=== PATIENT | female | born 1990 | race Caucasian/White ===

== ENCOUNTER 2016-06-12 13:25 | Observation (INO) | payer MEDICAID ==
[~2016-06-12] VITALS: Ht 154.9 cm; Wt 78.9 kg
[~2016-06-12 13:25] MED LIST: MOTRIN800 MG PO; PRENATAL VITAMI1 T10 PO
[2016-06-12 15:19] VITALS: BP 121/68
[2016-06-12] MEDS ORDERED: NATURAL IRON65 MG PO (15:23)
[2016-06-12 17:21] VITALS: BP 110/60
== END 2016-06-12 17:30 | disposition home or self-care (01) ==
LOC: MLD 13:25
PROVIDERS: ADMIT Obstetrics & Gynecology; ATTEND Obstetrics & Gynecology
DX: O26.893 Other specified pregnancy related conditions, third trimester (principal); R10.2 Pelvic and perineal pain; Z3A.37 37 weeks gestation of pregnancy
CPT/HCPCS: 76805; G0378; Q0092

== ENCOUNTER 2016-06-17 22:53 | Inpatient (IN) | payer MEDICAID ==
[~2016-06-17] VITALS: Ht 154.9 cm; Wt 78.9 kg
[~2016-06-17 22:53] MED LIST changes: +NATURAL IRON65 MG PO
[2016-06-17] MEDS ORDERED: PROMETHAZINE 25 MG/ML VIAL IVP PRN (23:20)
[2016-06-17] MEDS ORDERED: CARBOPROST 250 MCG/ML AMP IM PRN (23:20)
[2016-06-17] MEDS ORDERED: OXYTOCIN 10 UNITS/ML VIAL IM SCH (23:20)
[2016-06-17] MEDS ORDERED: NALBUPHINE HYDROCHLORIDE 10 MG/ML VIAL IVP PRN (23:20)
[2016-06-17] MEDS ORDERED: METHYLERGONOVINE 0.2 MG/ML AMP IM PRN (23:20)
[2016-06-17] MEDS ORDERED: MISOPROSTOL 25 MCG TAB VG PRN (23:25)
[2016-06-17 23:32] VITALS: BP 109/66
[2016-06-17] MEDS: LACTATED RINGERS 1,000 ML IV SCH (23:50)
[2016-06-18] MEDS ORDERED: ROPIVACAINE 0.2%/NS PREMIX 250 ML EPI ONE (01:06)
[2016-06-18] MEDS ORDERED: ROPIVACAINE 0.2%/NS PREMIX 250 ML EPI SCH (01:25)
[2016-06-18] MEDS ORDERED: OXYTOCIN 20 UNITS/LR PREMIX 1,000 ML IV ONE (02:57)
[2016-06-18] MEDS ORDERED: OXYTOCIN 20 UNITS/LR PREMIX 1,000 ML IV SCH (06:00)
[2016-06-18] MEDS ORDERED: ACETAMINOPHEN 325 MG TAB PO PRN (08:00)
[2016-06-18] MEDS ORDERED: ACETAMINOPHEN 325 MG TAB ONE (08:10)
--- NOTE | 2016-06-18 09:16 | NUR ---
PATIENT HAS BEEN SCREENED AND CATEGORIZED LOW NUTRITION RISK. PATIENT WILL BE SEEN WITHIN 7 DAYS OF ADMISSION. 06/24/[address]
[2016-06-18] MEDS ORDERED: OXYTOCIN 10 UNITS/ML VIAL ONE (10:35)
[2016-06-18] MEDS: LACTATED RINGERS 1,000 ML IV SCH (10:48)
[2016-06-18] MEDS ORDERED: TEMAZEPAM 15 MG CAP PO PRN (12:45)
[2016-06-18] MEDS ORDERED: MEASLES, MUMPS, AND RUBELLA 1 VIAL SQVAC PRN (12:45)
[2016-06-18] MEDS ORDERED: BENZOCAINE/MENTHOL 20%-0.5% 60 GM CAN TP PRN (12:45)
[2016-06-18] MEDS ORDERED: oxyCODONE/APAP 5/325 MG 1 TAB TAB PO PRN (12:45)
[2016-06-18] MEDS ORDERED: METHYLERGONOVINE 0.2 MG/ML AMP IM PRN (12:45)
[2016-06-18] MEDS ORDERED: WITCH HAZEL 40 PAD PACKAGE TP PRN (12:45)
[2016-06-18] MEDS ORDERED: OXYTOCIN 10 UNITS/ML VIAL IM PRN (12:45)
[2016-06-18] MEDS ORDERED: HYDROcodone/APAP 5/325 MG 1 TAB TAB PO PRN (12:45)
[2016-06-18] MEDS ORDERED: oxyCODONE/APAP 5/325 MG 1 TAB TAB ONE (12:52)
[2016-06-18] MEDS: IBUPROFEN 800 MG TAB PO PRN (19:25)
[2016-06-18] MEDS ORDERED: DOCUSATE SOD/SENNA 50/8.6 MG 1 TAB PO SCH (21:00)
[2016-06-19] MEDS: IBUPROFEN 800 MG TAB PO PRN ×2 (02:25→08:39)
[2016-06-19] MEDS ORDERED: MOTRIN400 M1 PO (14:53)
== END 2016-06-19 15:45 | disposition home or self-care (01) | DRG 560 ==
LOC: MLD 22:53 → MFCC 06-18 14:14
PROVIDERS: ADMIT Obstetrics & Gynecology; ATTEND Obstetrics & Gynecology
PROC: 10E0XZZ Delivery of Products of Conception, External Approach (ICD-10-PCS; principal; 2016-06-17)
PROC: 10907ZC Drainage of Amniotic Fluid, Therapeutic from Products of Conception, Via Natural or Artificial Opening (ICD-10-PCS; 2016-06-17)
PROC: 00HU33Z Insertion of Infusion Device into Spinal Canal, Percutaneous Approach (ICD-10-PCS; 2016-06-17)
PROC: 3E0R3CZ (ICD-10-PCS; 2016-06-17)
DX: O80 Encounter for full-term uncomplicated delivery (principal); S61.511A Laceration without foreign body of right wrist, initial encounter; Z37.0 Single live birth; Z3A.39 39 weeks gestation of pregnancy; Z28.21 Immunization not carried out because of patient refusal

== ENCOUNTER 2018-03-03 17:55 | Emergency (ER) | payer SELFPAY ==
[~2018-03-03] VITALS: Ht 154.9 cm; Wt 72.6 kg
[~2018-03-03 17:55] MED LIST changes: +FERR-252 PO; +IBUP-1842 PO; -MOTRIN800 MG PO; -NATURAL IRON65 MG PO; +PREN-385 PO; -PRENATAL VITAMI1 T10 PO
--- NOTE | 2018-03-03 18:02 | NUR ---
PT AMBULATED TO ER BED 10
[2018-03-03 18:10] VITALS: BP 127/75
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
[2018-03-03 18:57] VITALS: BP 127/75
== END 2018-03-03 18:58 | disposition home or self-care (01) ==
LOC: MED 17:55
DX: S23.3XXA Sprain of ligaments of thoracic spine, initial encounter (principal); Z79.1 Long term (current) use of non-steroidal anti-inflammatories (NSAID); Z79.899 Other long term (current) drug therapy; V49.49XA Driver injured in collision with other motor vehicles in traffic accident, initial encounter; Y93.89 Activity, other specified; Y92.410 Unspecified street and highway as the place of occurrence of the external cause; Y99.8 Other external cause status
CPT/HCPCS: 99282

== ENCOUNTER 2018-08-02 03:20 | Emergency (ER) | payer SELFPAY ==
[~2018-08-02] VITALS: Ht 154.9 cm; Wt 72.6 kg
[2018-08-02 03:30] VITALS: BP 126/75
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
[2018-08-02] MEDS ORDERED: KETOROLAC 60 MG/2 ML VIAL IM ONE (04:00)
--- NOTE | 2018-08-02 04:08 | NUR ---
[facility] called. Spoke with Francisco, said he would have a spout worker follow-up. Will call back
--- NOTE | 2018-08-02 04:40 | NUR ---
Spoke with Memo, dispatch at [facility]. Unable to provide case number or ETA of because a deputy has not yet jade assigned. Awaiting call back.
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
--- NOTE | 2018-08-02 05:30 | NUR ---
[facility] called. Spoke with Deputy Jolly, said he would follow up with the patient.
== END 2018-08-02 05:02 | disposition home or self-care (01) ==
LOC: MED 03:20
DX: S09.90XA Unspecified injury of head, initial encounter (principal); Z79.899 Other long term (current) drug therapy; Y04.2XXA Assault by strike against or bumped into by another person, initial encounter; Y93.89 Activity, other specified; Y92.89 Other specified places as the place of occurrence of the external cause; Y99.8 Other external cause status
CPT/HCPCS: 96372; 99283; J1885

== ENCOUNTER 2019-01-13 01:14 | Emergency (ER) | payer SELFPAY ==
[~2019-01-13] VITALS: Ht 154.9 cm; Wt 72.6 kg
[2019-01-13 01:19] VITALS: BP 134/106
--- NOTE | 2019-01-13 01:23 | NUR ---
PT AMBULATED TO BED 5.
--- NOTE | 2019-01-13 01:23 | NUR ---
CHANGE TO BED 4. PROVIDING URINE.
--- NOTE | 2019-01-13 01:30 | NUR ---
28 Y/O F PRESENTS TO ER C/O HEADACHE SINCE SATURDAY. PT DENIES PAIN, PAIN LEVEL 0/10. PT FEELS PRESSURE IN HEAD THAT COMES AND GOES. PT DENIES VISION CHANGES. CURRENT BP 147/90. PT STATES HTN RUNS IN HER FAMILY, BUT HAS NEVER BEEN TREATED FOR HTN. NKA. NO MED HX. SAFETY MEASURES IN PLACE. ERMD AT BEDSIDE.
[2019-01-13 01:42] VITALS: BP 147/90
--- NOTE | 2019-01-13 01:43 | NUR ---
Patient discharged by Dr. Samayoa with v/s stable. Written and verbal after care instructions given and explained. Patient verbalized understanding. Ambulatory with steady gait. All questions addressed prior to discharge. Advised to follow up with PMD.
== END 2019-01-13 01:42 | disposition home or self-care (01) ==
LOC: MED 01:14
DX: I10 Essential (primary) hypertension (principal); Z79.899 Other long term (current) drug therapy
CPT/HCPCS: 99281

== ENCOUNTER 2019-02-15 17:34 | Emergency (ER) | payer SELFPAY ==
[~2019-02-15] VITALS: Ht 154.9 cm; Wt 76.2 kg
[2019-02-15 17:42] VITALS: BP 127/78
--- NOTE | 2019-02-15 17:48 | NUR ---
PT AMBULATED TO ER BED 04
--- NOTE | 2019-02-15 17:50 | NUR ---
PT ARRIVED TO ED C/O RLQ PAIN X SATURDAY. RATES PAIN8/10 AND DESCRIBES IT SHARP. DENIES ANY DYSURIA,BLOOD IN URINE. ABD IS FLAT AND SOFT. ACTIVE BS IN ALL QUADS. TENDERNESS ON RLQ. PT ALSO STATES THE PAIN RADIATES TO THE RIGHT SIDE OF THE BACK. VSS. NO N,V,D, OR FEVER. NO CHANGES IN APPETITE. NKA. MO PMH.
--- NOTE | 2019-02-15 18:32 | NUR ---
US AT BEDSIDE.
--- NOTE | 2019-02-15 19:04 | NUR ---
Pt report given to LOUIS CROOKS. Transfer of care at this time.
--- NOTE | 2019-02-15 19:11 | NUR ---
PATIENT QUIETLY SITTING IN BED. WILL CONTINUE TO MONITOR.
[2019-02-15 19:27] VITALS: BP 119/77
--- NOTE | 2019-02-15 19:27 | NUR ---
Patient discharged with v/s stable. Written and verbal after care instructions given and explained. Patient alert, oriented and verbalized understanding of instructions. with steady gait. All questions addressed prior to discharge. ID band removed. Patient advised to follow up with PMD. Rx of given. Opportunity to ask questions provided and answered.
== END 2019-02-15 19:27 | disposition home or self-care (01) ==
LOC: MED 17:34
DX: N83.209 Unspecified ovarian cyst, unspecified side (principal); Z79.899 Other long term (current) drug therapy
CPT/HCPCS: 76856; 81002; 81025; 99284; Q0092

== ENCOUNTER 2019-04-07 13:06 | Emergency (ER) | payer SELFPAY ==
[~2019-04-07] VITALS: Ht 154.9 cm; Wt 72.6 kg
[2019-04-07 13:13] VITALS: BP 117/73
--- NOTE | 2019-04-07 13:40 | NUR ---
Patient ambulated to bed 12 with family. RN evaluating patient at bedside.
--- NOTE | 2019-04-07 13:52 | NUR ---
BIB SELF PT C/O DRY COUGH, CONGESTION, STUFFY NOSE X3 DAYS. DENIES N/V/D. REPORTS SORE THROAT PAIN, 01/15. PERIODS OF DIFFICULT BREATHING X3 DAYS, OCCURS MOSTLY AT NIGHT TIME. NO PMH, NKA Addendum: 04/07/19 at 1357 by [email or web address] BIB SELF PT C/O DRY COUGH, CONGESTION, STUFFY NOSE X3 DAYS. DENIES N/V/D. REPORTS SORE THROAT PAIN, 01/15. PERIODS OF DIFFICULT BREATHING X3 DAYS, OCCURS MOSTLY AT NIGHT TIME. BILATERAL LUNG SOUNDS CLEAR THROUGHOUT ALL LOBES. NO PMH, NKA
--- NOTE | 2019-04-07 14:15 | NUR ---
CECILIO YU AT BEDSIDE
[2019-04-07 14:44] VITALS: BP 121/75
--- NOTE | 2019-04-07 14:44 | NUR ---
Patient discharged with v/s stable. Written and verbal after care instructions given and explained. Patient alert, oriented and verbalized understanding of instructions. Ambulatory with steady gait. All questions addressed prior to discharge. ID band removed. Patient advised to follow up with PMD. Rx of TAMIFLU, PROMETHAZINE, IBUPROFEN given. Patient educated on indication of medication including possible reaction and side effects. Opportunity to ask questions provided and answered.
== END 2019-04-07 14:44 | disposition home or self-care (01) ==
LOC: MED 13:06
DX: R09.89 Other specified symptoms and signs involving the circulatory and respiratory systems (principal); R05 Cough; R50.9 Fever, unspecified; Z79.899 Other long term (current) drug therapy
CPT/HCPCS: 99283

== ENCOUNTER 2019-10-06 11:37 | Emergency (ER) | payer OTHER ==
[~2019-10-06] VITALS: Ht 154.9 cm; Wt 79.4 kg
[2019-10-06 11:42] VITALS: BP 127/76
--- NOTE | 2019-10-06 11:51 | NUR ---
29 Y/O F C/C RLQ ABDOMINAL PAIN 4/10, STABBING SENSATION, NON RADIATING, NOTHING ALLEVIATES OR EXARCERBATES PAIN X 3 WEEKS. DENIES DYSURIA; REGULAR BM. NO NVD. PT NKA. NO HX. NO SX. NO RX. SIDE RAIL X1.
[2019-10-06 13:21] LABS: BASOPHILS # (AUTO) 0.1 K/uL (0.00-0.22); EOSINOPHILS # (AUTO) 0.1 K/uL (0-0.4); HEMOGLOBIN 12.2 g/dL (12.0-16.0); LYMPHOCYTES # (AUTO) 1.5 K/uL (2.5-16.5); LYMPHOCYTES % (AUTO) 20.2 % (20.5-51.1); MEAN CORPUSCULAR HEMOGLOBIN 26 pg (27-31); MEAN CORPUSCULAR HGB CONC 32 g/dL (33-37); MEAN CORPUSCULAR VOLUME 80.2 fL (80-94); MONOCYTES # (AUTO) 0.4 K/uL (0.8-1.0); MONOCYTES % (AUTO) 5.9 % (1.7-9.3); NEUTROPHILS # (AUTO) 5.3 K/uL (1.8-7.7); NEUTROPHILS % (AUTO) 71.9 % (42.2-75.2); PLATELET COUNT (AUTO) 263 K/uL (140-450); RED BLOOD CELL COUNT(AUTO) 4.74 MIL/uL (4.20-5.40); RED CELL DISTRIBUTION WIDTH 14.3 % (11.6-13.7); WHITE BLOOD COUNT (AUTO) 7.4 K/uL (4.8-10.8)
[2019-10-06 14:11] VITALS: BP 127/76
--- NOTE | 2019-10-06 14:11 | NUR ---
Patient discharged with v/s stable. Written and verbal after care instructions given and explained. Patient alert, oriented and verbalized understanding of instructions. Ambulatory with steady gait. All questions addressed prior to discharge. ID band removed. Patient advised to follow up with PMD. Rx of TYLENOL/ VITAMINS given. Patient educated on indication of medication including possible reaction and side effects. Opportunity to ask questions provided and answered. LABS AND ULTRASOUND REPORTS HANDED TO PT FOR F/U WITH ACCOUNT EXECUTIVE TRAINEE
== END 2019-10-06 14:11 | disposition home or self-care (01) ==
LOC: MED 11:37
DX: O20.0 Threatened abortion (principal); Z3A.01 Less than 8 weeks gestation of pregnancy; Z79.899 Other long term (current) drug therapy
CPT/HCPCS: 36415; 76817; 81002; 81025; 84702; 85025; 86900; 86901; 99284; Q0092

== ENCOUNTER 2019-10-23 18:03 | Emergency (ER) | payer OTHER ==
[~2019-10-23] VITALS: Ht 160 cm; Wt 81.2 kg
[2019-10-23 18:11] VITALS: BP 127/74
--- NOTE | 2019-10-23 18:15 | NUR ---
PT GIVEN URINE CUP AND AMBULATED TO BED 12
--- NOTE | 2019-10-23 18:27 | NUR ---
29 Y/O F C/C RLQ ABDONINAL PAIN RADIATING TO THE RUQ ABDOMINAL AREA, SHARP/DULL SENSATION, 5/10 PAIN, NOTHING ALLEVIATES/NOTHING EXARCERBATES X 3 WEEKS. PT FURTHER STATES SPOTTING ON AND OFF X 3 DAYS. CURRENTLY UNSURE OF CURRENT WEEKS. FIFTH . . NKA. NO HX. NO RX. NO SX. NO NVD. SIDE RAIL X1.
--- NOTE | 2019-10-23 18:30 | NUR ---
ULTRASOUND AT BEDSIDE
[2019-10-23 19:11] LABS: BASOPHILS % (AUTO) 0.4 % (0.0-2.0); EOSINOPHILS # (AUTO) 0.1 K/uL (0-0.4); EOSINOPHILS % (AUTO) 0.8 % (0.0-4.0); HEMATOCRIT 36.3 % (36-48); HEMOGLOBIN 11.6 g/dL (12.0-16.0); LYMPHOCYTES # (AUTO) 1.5 K/uL (2.5-16.5); LYMPHOCYTES % (AUTO) 17.3 % (20.5-51.1); MEAN CORPUSCULAR HEMOGLOBIN 26 pg (27-31); MEAN CORPUSCULAR HGB CONC 32 g/dL (33-37); MEAN CORPUSCULAR VOLUME 79.7 fL (80-94); MONOCYTES # (AUTO) 0.5 K/uL (0.8-1.0); NEUTROPHILS # (AUTO) 6.8 K/uL (1.8-7.7); NEUTROPHILS % (AUTO) 75.5 % (42.2-75.2); PLATELET COUNT (AUTO) 253 K/uL (140-450); RED BLOOD CELL COUNT(AUTO) 4.55 MIL/uL (4.20-5.40); WHITE BLOOD COUNT (AUTO) 8.9 K/uL (4.8-10.8)
--- NOTE | 2019-10-23 19:24 | NUR ---
REPORT GIVEN TO BATSHEVA MYERS FOR CONTINUITY OF CARE
--- NOTE | 2019-10-23 19:24 | NUR ---
RECEIVED REPORT FROM LOUIS RUTH. WILL CONT CARE AT THIS TIME.
[2019-10-23 19:33] LABS: APPEARANCE,URINE SL CLOUDY (CLEAR); BILIRUBIN,URINE NEGATIVE (NEGATIVE); BLOOD, URINE TRACE-I (NEGATIVE); COLOR,URINE YELLOW (YELLOW); LEUKOCYTE ESTERASE ,URINE 1+ (NEGATIVE); NITRITE, URINE NEGATIVE (NEGATIVE); UGLUCOSE NEGATIVE (NEGATIVE)
[2019-10-23 20:18] LABS: RBC,URINE 0-5 /HPF (0-5); WBC,URINE 0-5 /HPF (0-5)
[2019-10-23 21:01] VITALS: BP 111/73
== END 2019-10-23 21:01 | disposition home or self-care (01) ==
LOC: MED 18:03
DX: O43.891 Other placental disorders, first trimester (principal); O23.31 Infections of other parts of urinary tract in pregnancy, first trimester; Z3A.01 Less than 8 weeks gestation of pregnancy
CPT/HCPCS: 36415; 76817; 81001; 84702; 85025; 86900; 86901; 87086; 99284; Q0092

== ENCOUNTER 2020-12-24 04:00 | Emergency (ER) | payer OTHER ==
[~2020-12-24] VITALS: Ht 154.9 cm; Wt 81.6 kg
[2020-12-24 04:18] VITALS: BP 131/62
--- NOTE | 2020-12-24 04:21 | NUR ---
TO LOBBY A/W BED AMBULATORY
--- NOTE | 2020-12-24 05:04 | NUR ---
SEEN AND EXAMINED BY JUAN LUIS.
--- NOTE | 2020-12-24 05:48 | NUR ---
REPORTED TO [facility] AND TALKED TO HÉCTOR.
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
[2020-12-24] MEDS ORDERED: IBUPROFEN 600 MG TAB PO ONE (06:10)
--- NOTE | 2020-12-24 06:10 | NUR ---
MEDICATED PER ERMDS ORDER, TOLERATED WELL.
[2020-12-24] MEDS ORDERED: IBUP-1876 PO (06:34)
[2020-12-24 06:53] VITALS: BP 128/71
--- NOTE | 2020-12-24 06:53 | NUR ---
Patient discharged with v/s stable. Written and verbal after care instructions given and explained. Patient verbalized understanding. Ambulatory with steady gait. All questions addressed prior to discharge. Advised to follow up with PMD.
== END 2020-12-24 06:53 | disposition home or self-care (01) ==
LOC: MED 04:00
DX: S02.2XXA Fracture of nasal bones, initial encounter for closed fracture (principal); R03.0 Elevated blood-pressure reading, without diagnosis of hypertension; Z79.899 Other long term (current) drug therapy; Y04.2XXA Assault by strike against or bumped into by another person, initial encounter; Y93.89 Activity, other specified; Y92.89 Other specified places as the place of occurrence of the external cause; Y99.8 Other external cause status
CPT/HCPCS: 70160; 99283

== ENCOUNTER 2021-01-29 14:28 | Emergency (ER) | payer OTHER ==
[~2021-01-29] VITALS: Ht 154.9 cm; Wt 79.8 kg
[~2021-01-29 14:28] MED LIST changes: +IBUP-1876 PO
[2021-01-29 14:35] VITALS: BP 129/79
--- NOTE | 2021-01-29 14:43 | NUR ---
Pt remains in tent
[2021-01-29] MEDS ORDERED: ROBAC PO (15:32)
[2021-01-29] MEDS ORDERED: ALBU0.0912 IH (15:32)
[2021-01-29] MEDS ORDERED: AZIT250T4 PO (15:32)
--- NOTE | 2021-01-29 16:01 | NUR ---
Patient discharged with v/s stable. Written and verbal after care instructions ABOUT COVID 19 AND COMMUNITY ACQUIRED PNEUMONIA given and explained. Patient alert, oriented and verbalized understanding of instructions. Ambulatory with steady gait. All questions addressed prior to discharge. ID band removed. Patient advised to follow up with PMD. Rx of ALBUTEROL, AZITHROMYCIN, GUAIFENESIN-CODEINE SYRUP given. Patient educated on indication of medication including possible reaction and side effects. Opportunity to ask questions provided and answered.
== END 2021-01-29 16:01 | disposition home or self-care (01) ==
LOC: MED 14:28
DX: U07.1 COVID-19 (principal); J12.82 Pneumonia due to coronavirus disease 2019; Z79.899 Other long term (current) drug therapy
CPT/HCPCS: 71045; 99283; Q0092

== ENCOUNTER 2021-02-24 09:52 | Emergency (ER) | payer OTHER ==
[~2021-02-24] VITALS: Ht 154.9 cm; Wt 81.6 kg
[~2021-02-24 09:52] MED LIST changes: +ALBU0.0912 IH; +AZIT250T4 PO; +ROBAC PO
[2021-02-24 10:03] VITALS: BP 129/87
--- NOTE | 2021-02-24 10:06 | NUR ---
PT AMBULATED BACK TO LOBBY AT THIS TIME
--- NOTE | 2021-02-24 10:28 | NUR ---
PT TAKEN TO XR VIA W/C.
--- NOTE | 2021-02-24 10:35 | NUR ---
PT RETURNED TO LOBBY POST XRAY
--- NOTE | 2021-02-24 11:55 | NUR ---
30 Y/O F BIB SELF FROM HOME, R FOOT PAIN, STEPPED ON GLASS YESTERDAY. 10/10 SHARP PAIN WITH AMBULATION. UPON ASSESSMENT, AREA HAS NO EDEMA, VISIBLE WOUND ON BOTTOM OF FOOT. NO BLEEDING OR DISCHARGE AT THIS TIME. DENIES N/V/D; SKIN IS PINK/WARM/DRY, ON SITE OF PAIN, PT HAS SOME REDNESS AROUND SITE OF POSSIBLE GLASS; AAOX4 WITH EVEN AND STEADY GAIT; LUNGS CLEAR BL; HR EVEN AND REGULAR; PT DENIES ANY FEVER, CP, SOB, OR COUGH AT THIS TIME; PATIENT STATES PAIN OF 10/10 AT THIS TIME; VSS; PATIENT POSITIONED FOR COMFORT; HOB ELEVATED; BEDRAILS UP X2; BED DOWN. ER MADE AWARE OF PT STATUS. PMH: DENIES NKA MED: DENIES
--- NOTE | 2021-02-24 11:55 | NUR ---
PT AMBULATED TO [facility] AT THIS TIME
--- NOTE | 2021-02-24 12:00 | NUR ---
CECILIO NEGRETE WITH PT IN C FOR FURTHER EVALUATION.
[2021-02-24] MEDS ORDERED: NAPR-54 PO (12:09)
[2021-02-24 12:16] VITALS: BP 129/87
--- NOTE | 2021-02-24 12:17 | NUR ---
Patient discharged with v/s stable. Written and verbal after care instructions given and explained. Patient alert, oriented and verbalized understanding of instructions. Ambulatory with steady gait. All questions addressed prior to discharge. ID band removed. Patient advised to follow up with PMD. Rx of NAPROXEN (SENT) given. Patient educated on indication of medication including possible reaction and side effects. Opportunity to ask questions provided and answered.
== END 2021-02-24 12:17 | disposition home or self-care (01) ==
LOC: MED 09:52
DX: S91.331A Puncture wound without foreign body, right foot, initial encounter (principal); Z79.899 Other long term (current) drug therapy; Z79.1 Long term (current) use of non-steroidal anti-inflammatories (NSAID); Z79.2 Long term (current) use of antibiotics; Z79.51 Long term (current) use of inhaled steroids; W25.XXXA Contact with sharp glass, initial encounter; Y93.89 Activity, other specified; Y92.89 Other specified places as the place of occurrence of the external cause; Y99.8 Other external cause status
CPT/HCPCS: 73630; 99283

== ENCOUNTER 2021-11-03 11:08 | Emergency (ER) | payer OTHER ==
[~2021-11-03] VITALS: Ht 154.9 cm; Wt 79.8 kg
[~2021-11-03 11:08] MED LIST changes: +NAPR-54 PO
--- NOTE | 2021-11-03 11:20 | NUR ---
Ambulated to bed 8 with steady gait
[2021-11-03 11:25] VITALS: BP 111/69
--- NOTE | 2021-11-03 11:30 | NUR ---
31 y/o female w c/o of RLQ pain x 4 days along with nausea, dizziness, and light spotting when wiping x 1 episode. Reports taking home test yesteray with positive result, LMP unknown, cycle irregular. Denies fever, sob, dysuria. Reports pain in intermittent and radiates to RUQ, denies pain at this time. NKA PMH: denies
--- NOTE | 2021-11-03 11:55 | NUR ---
Chris Earl at bedside for evaluation
--- NOTE | 2021-11-03 12:19 | NUR ---
lab at bedside
--- NOTE | 2021-11-03 12:26 | NUR ---
Ultrasound at bedside.
[2021-11-03 12:39] LABS: BASOPHILS % (AUTO) 0.6 % (0.0-2.0); EOSINOPHILS # (AUTO) 0.1 K/uL (0-0.4); EOSINOPHILS % (AUTO) 1.2 % (0.0-4.0); HEMATOCRIT 35.8 % (36-48); HEMOGLOBIN 11.6 g/dL (12.0-16.0); LYMPHOCYTES # (AUTO) 1.4 K/uL (2.5-16.5); LYMPHOCYTES % (AUTO) 18.5 % (20.5-51.1); MEAN CORPUSCULAR HEMOGLOBIN 26 pg (27-31); MEAN CORPUSCULAR HGB CONC 33 g/dL (33-37); MEAN CORPUSCULAR VOLUME 79.2 fL (80-94); MONOCYTES # (AUTO) 0.5 K/uL (0.8-1.0); MONOCYTES % (AUTO) 6.7 % (1.7-9.3); NEUTROPHILS # (AUTO) 5.3 K/uL (1.8-7.7); PLATELET COUNT (AUTO) 241 K/uL (140-450); RED BLOOD CELL COUNT(AUTO) 4.52 MIL/uL (4.20-5.40); RED CELL DISTRIBUTION WIDTH 13.8 % (11.6-13.7); WHITE BLOOD COUNT (AUTO) 7.3 K/uL (4.8-10.8)
[2021-11-03 12:56] LABS: APPEARANCE,URINE SL CLOUDY (CLEAR); BILIRUBIN,URINE 1+ (NEGATIVE); BLOOD, URINE TRACE-I (NEGATIVE); COLOR,URINE YELLOW (YELLOW); LEUKOCYTE ESTERASE ,URINE TRACE (NEGATIVE); NITRITE, URINE NEGATIVE (NEGATIVE); UGLUCOSE NEGATIVE (NEGATIVE)
[2021-11-03 13:25] LABS: ALBUMIN 3.6 g/dL (3.4-5.0); ANION GAP 13.5 (8-16); CREATININE 0.6 mg/dL (0.6-1.3); POTASSIUM 4.5 mmol/L (3.5-5.1); TOTAL BILIRUBIN 0.4 mg/dL (0.0-1.0)
[2021-11-03 13:40] VITALS: BP 127/78
[2021-11-03] MEDS ORDERED: CEPH-588 PO (13:51)
--- NOTE | 2021-11-03 14:40 | NUR ---
Patient discharged with v/s stable. Written and verbal after care instructions given. Patient alert, oriented and verbalized understanding of instructions. Ambulatory with steady gait. All questions addressed prior to discharge. ID band removed. Patient advised to follow up with PMD. Rx of Keflex given. Opportunity to ask questions provided and answered.
[2021-11-03 14:52] LABS: OTHER CASTS, URINE None Seen /LPF (None Seen)
== END 2021-11-03 14:40 | disposition home or self-care (01) ==
LOC: MED 11:08
DX: O20.0 Threatened abortion (principal); N39.0 Urinary tract infection, site not specified; Z3A.01 Less than 8 weeks gestation of pregnancy
CPT/HCPCS: 36415; 76801; 80053; 81001; 81025; 84702; 85025; 86900; 86901; 87086; 99284; Q0092

== ENCOUNTER 2023-02-13 08:28 | Emergency (ER) | payer OTHER ==
[~2023-02-13] VITALS: Ht 154.9 cm; Wt 77.7 kg
[~2023-02-13 08:28] MED LIST changes: +CEPH-588 PO
[2023-02-13 08:37] VITALS: BP 137/85; PULSE 78; RESP 20; TEMP 97.8; O2SAT 100
[2023-02-13 09:23] LABS: APPEARANCE,URINE CLEAR (CLEAR); BILIRUBIN,URINE NEGATIVE (NEGATIVE); BLOOD, URINE TRACE-I (NEGATIVE); COLOR,URINE YELLOW (YELLOW); LEUKOCYTE ESTERASE ,URINE NEGATIVE (NEGATIVE); NITRITE, URINE NEGATIVE (NEGATIVE); PROTEIN,URINE NEGATIVE (NEGATIVE); UGLUCOSE NEGATIVE (NEGATIVE); UROBILINOGEN,URINE 0.2 EU/dL (0.2 - 1)
[2023-02-13 10:01] VITALS: BP 137/85; PULSE 78; RESP 20; TEMP 97.8; O2SAT 100
== END 2023-02-13 10:01 | disposition home or self-care (01) ==
LOC: MED 08:28
DX: R10.31 Right lower quadrant pain (principal); Z79.899 Other long term (current) drug therapy; Z79.1 Long term (current) use of non-steroidal anti-inflammatories (NSAID); Z79.2 Long term (current) use of antibiotics
CPT/HCPCS: 81003; 81025; 99283

== ENCOUNTER 2023-07-04 00:43 | Emergency (ER) | payer OTHER ==
[~2023-07-04] VITALS: Ht 154.9 cm; Wt 81.6 kg
[2023-07-04 00:44] VITALS: BP 141/90; PULSE 120; RESP 18; TEMP 98; O2SAT 97
[2023-07-04 00:55] VITALS: O2SAT 99
[2023-07-04] MEDS: KETOROLAC 60 MG/2 ML VIAL IM ONE (01:51)
[2023-07-04] MEDS ORDERED: IBUP-2213 PO (01:56)
== END 2023-07-04 02:04 | disposition home or self-care (01) ==
LOC: MED 00:43
DX: S01.01XA Laceration without foreign body of scalp, initial encounter (principal); Z79.899 Other long term (current) drug therapy; W18.30XA Fall on same level, unspecified, initial encounter; Y93.89 Activity, other specified; Y92.89 Other specified places as the place of occurrence of the external cause; Y99.8 Other external cause status
CPT/HCPCS: 12002; 90471; 90715; 96372; 99284; J1885

== ENCOUNTER 2023-07-08 17:40 | Emergency (ER) | payer OTHER ==
[~2023-07-08] VITALS: Ht 154.9 cm; Wt 76.2 kg
[~2023-07-08 17:40] MED LIST changes: +IBUP-2213 PO
[2023-07-08 18:05] VITALS: BP 125/85; PULSE 85; RESP 16; TEMP 98.3; O2SAT 100
== END 2023-07-08 19:02 | disposition home or self-care (01) ==
LOC: MED 17:40
DX: S01.01XD Laceration without foreign body of scalp, subsequent encounter (principal); Z48.00 Encounter for change or removal of nonsurgical wound dressing; Z79.899 Other long term (current) drug therapy; X58.XXXD Exposure to other specified factors, subsequent encounter
CPT/HCPCS: 99281

== ENCOUNTER 2023-07-09 02:00 | Emergency (ER) | payer OTHER ==
[~2023-07-09] VITALS: Ht 154.9 cm; Wt 74.8 kg
[2023-07-09 02:17] VITALS: BP 127/97; PULSE 84; RESP 19; TEMP 98; O2SAT 99
[2023-07-09] MEDS: HYDROXYZINE HYDROCHLORIDE 25 MG TAB PO ONE (03:11)
[2023-07-09 04:25] VITALS: BP 122/90; PULSE 82; RESP 19; TEMP 98; O2SAT 99
== END 2023-07-09 04:25 | disposition home or self-care (01) ==
LOC: MED 02:00
DX: S46.812A Strain of other muscles, fascia and tendons at shoulder and upper arm level, left arm, initial encounter (principal); R06.00 Dyspnea, unspecified; Z79.899 Other long term (current) drug therapy; X58.XXXA Exposure to other specified factors, initial encounter; Y93.89 Activity, other specified; Y92.89 Other specified places as the place of occurrence of the external cause; Y99.8 Other external cause status
CPT/HCPCS: 71045; 93005; 99283

== ENCOUNTER 2023-07-10 16:50 | Emergency (ER) | payer OTHER | END 2023-07-10 17:30 | disposition left against medical advice (07) | LOC: MED 16:50 | DX: Z00.8 Encounter for other general examination (principal); Z48.00 Encounter for change or removal of nonsurgical wound dressing; Z53.21 Procedure and treatment not carried out due to patient leaving prior to being seen by health care provider ==

== ENCOUNTER 2023-07-11 11:03 | Emergency (ER) | payer OTHER ==
[~2023-07-11] VITALS: Ht 154.9 cm; Wt 74.8 kg
[2023-07-11 11:16] VITALS: BP 119/76; PULSE 78; RESP 18; TEMP 98.3; O2SAT 99
[2023-07-11 11:54] VITALS: BP 119/76; PULSE 78; RESP 18; TEMP 98.3; O2SAT 99
== END 2023-07-11 11:53 | disposition home or self-care (01) ==
LOC: MED 11:03
DX: S01.01XD Laceration without foreign body of scalp, subsequent encounter (principal); Z48.02 Encounter for removal of sutures; Z79.899 Other long term (current) drug therapy; X58.XXXD Exposure to other specified factors, subsequent encounter
CPT/HCPCS: 99281

== ENCOUNTER 2023-08-13 20:26 | Emergency (ER) | payer OTHER ==
[~2023-08-13] VITALS: Ht 154.9 cm; Wt 74.8 kg
[~2023-08-13 20:26] MED LIST changes: +NAPR-337 PO; -NAPR-54 PO
[2023-08-13 20:30] VITALS: BP 127/90; PULSE 101; RESP 19; TEMP 97.8; O2SAT 97
[2023-08-13 22:21] VITALS: BP 125/78; PULSE 93; RESP 21
[2023-08-13 22:22] VITALS: O2SAT 97
[2023-08-13] MEDS: ACETAMIN/CODEINE 120/12MG-5ML 5 ML UDC PO ONE (23:00)
[2023-08-13] MEDS ORDERED: ROBAC PO (23:45)
[2023-08-13] MEDS: DEXAMETHASONE 10 MG/ML VIAL PO ONE (23:59)
== END 2023-08-14 00:08 | disposition home or self-care (01) ==
LOC: MED 20:26
DX: J20.9 Acute bronchitis, unspecified (principal); Z79.899 Other long term (current) drug therapy
CPT/HCPCS: 71045; 87081; 99284; J1100